=== PATIENT | female | born 2005 | race Caucasian/White ===

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

== ENCOUNTER 2025-02-22 18:33 | Emergency (ER) | payer BC, OTHER ==
[~2025-02-22] VITALS: Ht 162.6 cm; Wt 51.3 kg
[2025-02-22] MEDS ORDERED: ISIB1TAB (18:42)
[2025-02-22 19:37] LABS: KETONE, URINE AUTO RFX TRACE mg/dL (NEGATIVE); LEUKOCYTE ESTERASE UR AUTO RFX NEGATIVE (NEGATIVE); MUCUS, URINE RFX SMALL (NEGATIVE); NITRITE, URINE AUTO RFX NEGATIVE (NEGATIVE); RBC, URINE AUTO RFX 2 /HPF (0-3); SQUAM EPITHELIAL CELL UR AURFX 0 /HPF (0-6); WBC, URINE AUTO RFX 0 /HPF (0-3)
[2025-02-22 19:42] LABS: BASO # 0.0 10^3/uL (0.0-0.2); BASO % 0.4 % (0.0-1.0); EOS # 0.0 10^3/uL (0.0-0.5); EOS % 0.4 % (0.0-3.0); LYMPH # 0.7 10^3/uL (1.5-5.0); LYMPH % 8.0 % (24.0-44.0); MONO # 0.8 10^3/uL (0.0-0.8); MONO % 9.5 % (2.0-8.0); NEUTROPHILS # 6.9 10^3/uL (1.5-8.5); NEUTROPHILS % 81.1 % (36.0-66.0); PLATELET COUNT, AUTOMATED 300 10^3/uL (150-450)
[2025-02-22 19:58] LABS: ALT/SGPT 20 U/L (7.0-40); AST/SGOT 22 U/L (<34); CALCIUM LEVEL 9.4 MG/DL (8.5-10.1); CARBON DIOXIDE LEVEL 23 MMOL/L (20-31); CHLORIDE LEVEL 103 MMOL/L (98-107); CREATININE FOR GFR 0.69 MG/DL (0.55-1.30); GLOMERULAR FILTRATION RATE > 90.0 (>60); POTASSIUM SERUM 3.8 MMOL/L (3.5-5.1); SODIUM LEVEL 138 MMOL/L (136-145)
[2025-02-22 20:12] LABS: HCG, SERUM QUALITATIVE NEGATIVE (NEGATIVE)
[2025-02-22] MEDS: ACETAMINOPHEN 500 MG TAB PO ONE (21:38)
[2025-02-22 22:00] VITALS: BP 109/70
[2025-02-22 22:57] VITALS: TEMP 98.5; O2SAT 99
== END 2025-02-22 23:04 | disposition home or self-care (01) ==
LOC: M ED 18:33
DX: U07.1 COVID-19 (principal); M79.18 Myalgia, other site; Z79.3 Long term (current) use of hormonal contraceptives